=== PATIENT | male | born 1995 | race Hispanic/Latino ===

== ENCOUNTER 2019-06-28 13:11 | Emergency (ER) | payer SELFPAY ==
[2019-06-28] MEDS ORDERED: PANTOPRAZOLE 40MG TABLET PO ONE (13:38)
[2019-06-28 13:39] LABS: Absolute Lymphocytes (CBC) 1.8 K/uL (0.7-4.9); Basophils % 0.6 % (0-1.3); Hematocrit 45.5 % (39.6-49.0); Lymphocytes % 20.1 % (15.3-44.8); MPV 9.7 fL (7.6-11.3)
[2019-06-28] MEDS ORDERED: ONDANSETRON 4 MG/2 ML VIAL ONE (13:46)
[2019-06-28] MEDS ORDERED: SUCRALFATE 1 GM TABLET ONE (13:46)
[2019-06-28 13:54] LABS: ALT/SGPT 22 U/L (12-78); AST/SGOT 16 U/L (15-37); Albumin 4.2 g/dL (3.4-5.0); Alkaline Phosphatase 87 U/L (45-117); BUN Blood Urea Nitrogen 13 mg/dL (7-18); Bicarbonate 26 mmol/L (21-32); Bilirubin Direct 0.2 mg/dL (0-0.2); Bilirubin Total 0.8 mg/dL (0.2-1.0); Glucose Level 112 mg/dL (74-106); Lipase 62 U/L (73-393); Potassium 3.5 mmol/L (3.5-5.1); Protein, Total 7.5 g/dL (6.4-8.2); Sodium Level 140 mmol/L (136-145)
--- NOTE | 2019-06-28 14:15 | ER ---
Nurse's Notes [facility] Name: Alvaro Conley Age: 24 yrs Sex: Male : 1995 Arrival Date: 06/28/2019 Time: 13:13 Bed 18 Private MD: Diagnosis: Gastritis, unspecified;Gastro-esophageal reflux disease Presentation: 06/28 13:15 Presenting complaint: Patient states: Abd pain for about a week on and off, last few la1 days has been real bad when I wake up. Transition of care: patient was not received from another setting of care. Onset of symptoms was June 28, 2019. Risk Assessment: Do you want to hurt yourself or someone else? Patient reports no desire to harm self or others. Initial Sepsis Screen: Does the patient meet any 2 criteria? No. Patient's initial sepsis screen is negative. Does the patient have a suspected source of infection? No. Patient's initial sepsis screen is negative. Care prior to arrival: None. 13:15 Method Of Arrival: Ambulatory la1 13:15 Acuity: GASPER 3 la1 Historical: - Allergies: 13:16 No Known Allergies; la1 - PMHx: 13:16 gastric ulcers; la1 - Immunization history:: Adult Immunizations up to date. - Social history:: Smoking status: Patient/guardian denies using tobacco. - Ebola Screening: : No symptoms or risks identified at this time. Screenin:40 Abuse screen: Denies threats or abuse. Nutritional screening: No deficits noted. em Tuberculosis screening: No symptoms or risk factors identified. Fall Risk None identified. Assessment: 13:40 General: Appears in no apparent distress. uncomfortable, Behavior is calm, cooperative, iw Denies fever. Pain: Complains of pain in left lower quadrant and right lower quadrant and epigastric area Pain does not radiate. Pain currently is 7 out of 10 on a pain scale. Neuro: Level of Consciousness is awake, alert, obeys commands, Oriented to person, place, time, situation, Appropriate for age. Cardiovascular: Capillary refill < 3 seconds Patient's skin is warm and dry. Respiratory: Airway is patent Respiratory effort is even, unlabored, Respiratory pattern is regular, symmetrical. GI: Abdomen is flat, Bowel sounds present X 4 quads. Abd is soft and non tender X 4 quads. Reports diarrhea, nausea, vomiting. Derm: Skin is intact, is healthy with good turgor, Skin is pink, warm \T\ dry. Musculoskeletal: Capillary refill < 3 seconds, Range of motion: intact in all extremities. 14:40 Reassessment: Patient appears in no apparent distress at this time. request to speak iw with provider, provider notified. Vital Signs: 13:16 BP 137 / 89; Pulse 82; Resp 16; Temp 97.8; Pulse Ox 100% on R/A; Weight 86.18 kg; la1 Height 6 ft. 1 in. (185.42 cm); 14:40 BP 134 / 85; Pulse 75; Resp 18; Pulse Ox 99% on R/A; Pain 7/10; iw 13:16 Body Mass Index 25.07 (86.18 kg, 185.42 cm) la1 ED Course: 13:13 Patient arrived in ED. mr 13:15 Arm band placed on left wrist. la1 13:16 Triage completed. la1 13:19 [facility]C [facility] snw 13:19 Juan Luis Johnson MD is Attending Physician. snw 13:30 Initial lab(s) drawn, by me, sent to lab. Inserted saline lock: 20 gauge in left wrist, em using aseptic technique. Blood collected. 13:34 Chest Single View XRAY In Process Unspecified. EDMS 13:35 Wali Huizar LVN is Primary Nurse. em 13:40 Patient has correct armband on for positive identification. Bed in low position. Call em light in reach. Pulse ox on. NIBP on. 15:06 No provider procedures requiring assistance completed. IV discontinued, intact, iw bleeding controlled, No redness/swelling at site. Pressure dressing applied. Administered Medications: 13:43 Drug: ProTONIX 40 mg Route: PO; em 14:29 Follow up: Response: No adverse reaction em 13:56 Drug: Zofran 4 mg Route: IVP; Site: left antecubital; iw 14:30 Follow up: Response: No adverse reaction em 13:56 Drug: CarafATE 1 grams Route: PO; em 14:30 Follow up: Response: No adverse reaction em Outcome: 14:15 Discharge ordered by . snw 15:06 Discharged to home ambulatory. iw 15:06 Condition: good 15:06 Discharge instructions given to patient, Instructed on discharge instructions, follow up and referral plans. medication usage, Demonstrated understanding of instructions, follow-up care, medications, Prescriptions given X 3. 15:07 Patient left the ED. em Signatures: Dispatcher [employer] EDSabine Fuller, DBA-C DBA-Csnw EzRosemary mr Huizar, Wali, NUTRITION MANAGER NUTRITION MANAGER em Brunilda Scott, RN Maikel Graves RN RN la1
--- NOTE | 2019-06-28 14:15 | EDPHYS ---
Physician Documentation [facility] Name: lAvaro Conley Age: 24 yrs Sex: Male : 1995 Arrival Date: 06/28/2019 Time: 13:13 Bed 18 Private MD: ED Physician Juan Luis Johnson HPI: 06/28 13:43 This 24 yrs old Male presents to ER via Ambulatory with complaints of snw Abdominal Pain. 13:43 The patient presents with abdominal pain in the epigastric area, in the lower abdomen. snw Onset: The symptoms/episode began/occurred 1 week(s) ago, and became persistent. The symptoms do not radiate. The symptoms are described as burning. Severity of pain: At its worst the pain was moderate. The patient has experienced similar episodes in the past, several times. The patient has not recently seen a physician. Historical: - Allergies: 13:16 No Known Allergies; la1 - PMHx: 13:16 gastric ulcers; la1 - Immunization history:: Adult Immunizations up to date. - Social history:: Smoking status: Patient/guardian denies using tobacco. - Ebola Screening: : No symptoms or risks identified at this time. ROS: 13:43 Constitutional: Negative for fever, chills, and weight loss, Eyes: Negative for injury, snw pain, redness, and discharge, ENT: Negative for injury, pain, and discharge, Neck: Negative for injury, pain, and swelling, Cardiovascular: Negative for chest pain, palpitations, and edema, Respiratory: Negative for shortness of breath, cough, wheezing, and pleuritic chest pain, Back: Negative for injury and pain, : Negative for injury, bleeding, discharge, and swelling, MS/Extremity: Negative for injury and deformity, Skin: Negative for injury, rash, and discoloration, Neuro: Negative for headache, weakness, numbness, tingling, and seizure. 13:43 Abdomen/GI: Positive for abdominal pain, vomiting. Exam: 13:42 Constitutional: This is a well developed, well nourished patient who is awake, alert, snw and in no acute distress. Head/Face: Normocephalic, atraumatic. Eyes: Pupils equal round and reactive to light, extra-ocular motions intact. Lids and lashes normal. Conjunctiva and sclera are non-icteric and not injected. Cornea within normal limits. Periorbital areas with no swelling, redness, or edema. ENT: Nares patent. No nasal discharge, no septal abnormalities noted. Tympanic membranes are normal and external auditory canals are clear. Oropharynx with no redness, swelling, or masses, exudates, or evidence of obstruction, uvula midline. Mucous membranes moist. Neck: Trachea midline, no thyromegaly or masses palpated, and no cervical lymphadenopathy. Supple, full range of motion without nuchal rigidity, or vertebral point tenderness. No Meningismus. Chest/axilla: Normal chest wall appearance and motion. Nontender with no deformity. No lesions are appreciated. Cardiovascular: Regular rate and rhythm with a normal S1 and S2. No gallops, murmurs, or rubs. Normal PMI, no JVD. No pulse deficits. Respiratory: Lungs have equal breath sounds bilaterally, clear to auscultation and percussion. No rales, rhonchi or wheezes noted. No increased work of breathing, no retractions or nasal flaring. Back: No spinal tenderness. No costovertebral tenderness. Full range of motion. Skin: Warm, dry with normal turgor. Normal color with no rashes, no lesions, and no evidence of cellulitis. MS/ Extremity: Pulses equal, no cyanosis. Neurovascular intact. Full, normal range of motion. Neuro: Awake and alert, GCS 15, oriented to person, place, time, and situation. Cranial nerves II-XII grossly intact. Motor strength 5/5 in all extremities. Sensory grossly intact. Cerebellar exam normal. Normal gait. Psych: Awake, alert, with orientation to person, place and time. Behavior, mood, and affect are within normal limits. 13:42 Abdomen/GI: Inspection: abdomen appears normal, Bowel sounds: normal, Palpation: mild abdominal tenderness, in the epigastric area, right lower quadrant and left lower quadrant. Vital Signs: 13:16 BP 137 / 89; Pulse 82; Resp 16; Temp 97.8; Pulse Ox 100% on R/A; Weight 86.18 kg; la1 Height 6 ft. 1 in. (185.42 cm); 14:40 BP 134 / 85; Pulse 75; Resp 18; Pulse Ox 99% on R/A; Pain 7/10; iw 13:16 Body Mass Index 25.07 (86.18 kg, 185.42 cm) la1 MDM: 13:35 Patient medically screened. snw 14:16 Data reviewed: vital signs, nurses notes. Data interpreted: Pulse oximetry: on room air snw is 100 %. Interpretation: normal. Counseling: I had a detailed discussion with the patient and/or guardian regarding: the historical points, exam findings, and any diagnostic results supporting the discharge/admit diagnosis, the presence of at least one elevated blood pressure reading (>120/80) during this emergency department visit, lab results, radiology results, the need for outpatient follow up, to return to the emergency department if symptoms worsen or persist or if there are any questions or concerns that arise at home. Special discussion: Based on the patient's Hx, exam, and Dx evaluation, there is no indication for emergent surgery or inpatient Tx. It is understood by the patient/guardian that if the Sx's persist or worsen they need to return immediately for re-evaluation. I have referred the patient to see his PCP for further evaluation of high blood pressure. Based on the history and exam findings, there is no indication for further emergent testing or inpatient evaluation. I discussed with the patient/guardian the need to see the alteration tailor apprentice for further evaluation of the symptoms. I discussed with the patient/guardian the need to see the primary care provider for further evaluation of the symptoms. 06/28 13:20 Order name: Basic Metabolic Panel; Complete Time: 13:56 kb 06/28 13:20 Order name: CBC with Diff; Complete Time: 13:44 kb 06/28 13:20 Order name: Hepatic Function; Complete Time: 13:56 kb 06/28 13:20 Order name: Lipase; Complete Time: 13:56 kb 06/28 13:23 Order name: Chest Single View XRAY; Complete Time: 14:45 snw 06/28 13:20 Order name: IV Saline Lock; Complete Time: 13:35 kb 06/28 13:20 Order name: Labs collected and sent; Complete Time: 13:35 kb Administered Medications: 13:43 Drug: ProTONIX 40 mg Route: PO; em 14:29 Follow up: Response: No adverse reaction em 13:56 Drug: Zofran 4 mg Route: IVP; Site: left antecubital; iw 14:30 Follow up: Response: No adverse reaction em 13:56 Drug: CarafATE 1 grams Route: PO; em 14:30 Follow up: Response: No adverse reaction em Disposition: 16:40 Co-signature as Attending Physician, Juan Luis Johnson MD I agree with the assessment and kdr plan of care. Disposition: 06/28/19 14:15 Discharged to Home. Impression: Gastritis, unspecified, Gastro-esophageal reflux disease. - Condition is Stable. - Discharge Instructions: Gastritis, Adult, Rehydration, Adult, Food Choices for Peptic Ulcer Disease. - Prescriptions for Carafate 1 gram Oral Tablet - take 1 tablet by ORAL route 4 times per day take on an empty stomach, beginning on waking and last dose at bedtime; 100 tablet. Protonix 40 mg Oral Tablet - take 1 tablet by ORAL route once daily; 30 tablet. promethazine 25 mg Oral Tablet - take 1 tablet by ORAL route every 6 hours As needed; 20 tablet. - Work release form, Medication Reconciliation Form, Thank You Letter, Antibiotic Education, Prescription Opioid Use form. - Follow up: Private Physician; Reason: Recheck today's complaints, Continuance of care, Re-evaluation by your physician. Signatures: Dispatcher [employer] EDOR Kati Qureshi, INDUSTRIAL HYGIENE ENGINEER-C INDUSTRIAL HYGIENE ENGINEER-Juan Luis Hayward MD MD [facility] [address] Sabine Espino INDUSTRIAL HYGIENE ENGINEER-C INDUSTRIAL HYGIENE ENGINEER-Wali Browne, DIGITAL COMMUNICATIONS MANAGER DIGITAL COMMUNICATIONS MANAGER em Brunilda Scott, MITA RN Maikel Nolasco RN RN la1 Corrections: (The following items were deleted from the chart) 15:07 14:15 06/28/2019 14:15 Discharged to Home. Impression: Gastritis, unspecified; em Gastro-esophageal reflux disease. Condition is Stable. Forms are Medication Reconciliation Form, Thank You Letter, Antibiotic Education, Prescription Opioid Use. Follow up: Private Physician; Reason: Recheck today's complaints, Continuance of care, Re-evaluation by your physician. snw
--- NOTE | 2019-06-28 14:19 | RAD REPORT ---
EXAM DESCRIPTION: RAD - Chest Single View - 06/28/2019 1:34 pm CLINICAL HISTORY: Abdominal pain COMPARISON: December 2014 TECHNIQUE: AP portable chest image was obtained 1329 hours . FINDINGS: Lungs are clear. Heart and vasculature are normal. No measurable pleural effusion and no p neumothorax. No acute bony abnormality seen. No acute aortic finding. No free air under the diaphragm . IMPRESSION: No acute cardiopulmonary process. No free air under the diaphragm.
[2019-06-28 15:12] VITALS: TEMP 97.8
[2019-06-28 15:21] VITALS: BP 134/85; O2SAT 99
== END 2019-06-28 15:07 | disposition home or self-care (01) ==
LOC: ER 13:11
DX: K29.70 Gastritis, unspecified, without bleeding (principal); K21.9 Gastro-esophageal reflux disease without esophagitis
CPT/HCPCS: 36415; 71045; 80048; 80076; 83690; 85025; 96374; 99284; J2405

== ENCOUNTER 2019-07-02 08:54 | Emergency (ER) | payer SELFPAY ==
[2019-07-02] MEDS ORDERED: FAMOTIDINE 20 MG/2 ML VIAL IV ONE (09:25)
[2019-07-02] MEDS ORDERED: HALOPERIDOL LACT 5 MG/ML INJ ONE ×2 (09:25→10:03)
[2019-07-02 09:49] LABS: Absolute Lymphocytes (CBC) 1.9 K/uL (0.7-4.9); Basophils % 0.3 % (0-1.3); Hematocrit 48.6 % (39.6-49.0); Lymphocytes % 16.4 % (15.3-44.8); MPV 10.5 fL (7.6-11.3); RBC Red Blood Cell Count 5.11 M/uL (4.33-5.43)
--- NOTE | 2019-07-02 10:04 | RAD REPORT ---
EXAM DESCRIPTION: CT - Stone Protocol - 07/02/2019 9:46 am CLINICAL HISTORY: Abdominal pain, back pain COMPARISON: December 2014 TECHNIQUE: Axial 5 mm thick images were obtained without oral or IV contrast. The [id number] span s the entirety of the system including uppermost abdomen and lung bases. All CT scans are performed using dose optimization technique as appropriate and may include automated exposure control or mA/KV adjustment according to patient size. FINDINGS: No hydronephrosis is present and no obstructing ureteral calculi. No nonobstructing calcul i seen. No suspicious renal masses. Isodense masses and pyelonephritis are not excluded on a stone pr otocol CT scan. No urinary bladder suspicious finding. No significant adrenal finding. Imaged portions of the liver, spleen and pancreas show no suspicious findings on non-contrast imaging . No gallbladder or biliary tree abnormality identified. No suspicious bowel findings. No appendicitis. No hernia, mass or bulky lymphadenopathy noted. No free air, free fluid or inflammatory stranding. No significant bony abnormality. Vertebral body height and alignment are normal. No disc space narrow ing. IMPRESSION: Noncontrast CT abdomen and pelvis showing no significant or suspicious finding. Isodense masses and pyelonephritis are not excluded on stone protocol technique.
[2019-07-02 10:07] LABS: Albumin 4.5 g/dL (3.4-5.0); Bilirubin Direct 0.1 mg/dL (0-0.2); Bilirubin Total 0.4 mg/dL (0.2-1.0); Potassium 4.7 mmol/L (3.5-5.1)
--- NOTE | 2019-07-02 10:18 | EKG ---
Test Date: 2019-07-02 Test Time: 09:26:16 Senior Asic Design Engineer: BRENDAN MEASUREMENT RESULTS: Intervals: Rate: 63 WA: 124 QRSD: 94 QT: 382 QTc: 390 [place]: P: 68 WA: 124 QRS: 54 T: 65 INTERPRETIVE STATEMENTS: Normal sinus rhythm with sinus arrhythmia Normal ECG No previous ECG available for comparison Electronically Signed On 07-02-19 10:17:35 CDT by Tod Duncan
[2019-07-02] MEDS ORDERED: HYDROMORPHONE HCL 1 MG/ML INJ ONE (10:36)
[2019-07-02] MEDS ORDERED: ONDANSETRON 4 MG/2 ML VIAL ONE (10:36)
[2019-07-02] MEDS ORDERED: NA CHLORIDE 0.9% 50 ML IV ONE (10:36)
[2019-07-02 11:06] LABS: Barbiturates NEGATIVE (NEGATIVE); Benzodiazepines NEGATIVE (NEGATIVE); Cocaine NEGATIVE (NEGATIVE); METHAMPHETAM NEGATIVE (NEGATIVE); Methadone NEGATIVE (NEGATIVE); Opiates NEGATIVE (NEGATIVE); Phencyclidine NEGATIVE (NEGATIVE); THC Cannibis POSITIVE (NEGATIVE)
[2019-07-02 11:07] LABS: Urine Bacteria <20 /HPF (NONE SEEN); Urine Culture Reflex Order NOT NEEDED; Urine Mucus 1+ /HPF (NONE SEEN); Urine RBC <5 /HPF (NONE SEEN)
--- NOTE | 2019-07-02 11:19 | ER ---
Nurse's Notes [facility] Name: Alvaro Conley Age: 24 yrs Sex: Male : 1995 Arrival Date: 07/02/2019 Time: 08:56 Bed 14 Private MD: Diagnosis: Generalized abdominal pain;Chronic pain syndrome Presentation: 07/02 09:06 Presenting complaint: Patient states: Abdominal and low back pain that began this morning, also reports N/V, denies diarrhea or fever. Transition of care: patient was not received from another setting of care. Onset of symptoms was July 02, 2019. Risk Assessment: Do you want to hurt yourself or someone else? Patient reports no desire to harm self or others. Initial Sepsis Screen: Does the patient meet any 2 criteria? No. Patient's initial sepsis screen is negative. Does the patient have a suspected source of infection? No. Patient's initial sepsis screen is negative. Care prior to arrival: None. 09:06 Method Of Arrival: Ambulatory 09:06 Acuity: GASPER 3 Triage Assessment: 09:10 General: Appears in no apparent distress. uncomfortable, slender, Behavior is ph cooperative, appropriate for age, Denies fever, chills. Pain: Complains of pain in right upper quadrant, left upper quadrant and right lower quadrant Pain radiates to low back area Pain currently is 10 out of 10 on a pain scale. Neuro: Level of Consciousness is awake, alert, obeys commands, Oriented to person, place, time, situation. Cardiovascular: Capillary refill < 3 seconds in bilateral fingers Patient's skin is warm and dry. Respiratory: Airway is patent Respiratory effort is even, unlabored, Respiratory pattern is regular, symmetrical. GI: Abdomen is flat, non-distended, Reports lower abdominal pain, upper abdominal pain, nausea, vomiting, Patient currently denies diarrhea. : Reports pain in bilateral lower quadrant(s) in lower back. Derm: Skin is intact, is healthy with good turgor, Skin is pink, warm \T\ dry. Musculoskeletal: Circulation, motion, and sensation intact. Range of motion: intact in all extremities. Historical: - Allergies: 09:10 No Known Allergies; ph - Home Meds: 09:10 Promethazine Oral [Active]; ph - PMHx: 09:10 gastric ulcers; ph - PSHx: 09:10 None; ph - Immunization history:: Adult Immunizations unknown. - Social history:: Smoking status: Patient uses tobacco products, smokes one-half pack cigarettes per day. - Ebola Screening: : No symptoms or risks identified at this time. Screenin:12 Abuse screen: Denies threats or abuse. Denies injuries from another. Nutritional ph screening: No deficits noted. Tuberculosis screening: No symptoms or risk factors identified. Fall Risk None identified. Assessment: 09:47 General: see triage assessment. ph 10:09 Reassessment: Patient appears in no apparent distress at this time. Patient and/or ph family updated on plan of care and expected duration. Pain level reassessed. Patient is alert, oriented x 3, equal unlabored respirations, skin warm/dry/pink. Pt diaphoretic and restless, continues to c/o pain 10/10 and nausea, ERP notified, see MAR. 11:17 Reassessment: Patient appears in no apparent distress at this time. Patient and/or ph family updated on plan of care and expected duration. Pain level reassessed. Patient is alert, oriented x 3, equal unlabored respirations, skin warm/dry/pink. Pt now resting quietly, VSS. Vital Signs: 09:09 BP 147 / 94; Pulse 70; Resp 20; Temp 97.9(O); Pulse Ox 100% on R/A; Weight 95.25 kg; ph Height 6 ft. 1 in. (185.42 cm); Pain 10/10; 10:10 BP 124 / 112; Pulse 59; Resp 18; Pulse Ox 100% on R/A; Pain 10/10; ph 11:17 BP 118 / 89; Pulse 62; Resp 18; Pulse Ox 97% on R/A; ph 09:09 Body Mass Index 27.70 (95.25 kg, 185.42 cm) ph ED Course: 08:56 Patient arrived in ED. mr 09:04 Raphael Bettencourt MD is Attending Physician. gs 09:06 Sahara Nobles, MITA is Primary Nurse. ph 09:09 Triage completed. ph 09:12 Arm band placed on Patient placed in an exam room, on a stretcher. ph 09:12 Patient has correct armband on for positive identification. Placed in gown. Bed in low ph position. Call light in reach. Pulse ox on. NIBP on. Door closed. Noise minimized. Warm blanket given. 09:43 EKG done, by composite bond technician. reviewed by Raphael Bettencourt MD. at1 09:45 CT Stone Protocol In Process Unspecified. EDMS 09:46 Inserted saline lock: 22 gauge in left antecubital area, using aseptic technique. Blood ph collected. 11:17 Don Stearns MD is Referral Physician. gs 11:27 No provider procedures requiring assistance completed. IV discontinued, intact, ph bleeding controlled, No redness/swelling at site. Pressure dressing applied. Administered Medications: 09:40 Drug: HALdol 2.5 mg Route: IVP; Site: left antecubital; ph 10:10 Follow up: Response: No adverse reaction; Pain is unchanged, physician notified ph 09:40 Drug: Pepcid 20 mg Route: IVP; Site: left antecubital; ph 10:10 Follow up: Response: No adverse reaction ph 10:08 Drug: HALdol 2.5 mg Route: IVP; Site: left antecubital; ph 10:45 Follow up: Response: No adverse reaction; Pain is unchanged, physician notified ph 10:44 Drug: Dilaudid 1 mg {Note: mixed w/ 50 cc NS.} Route: IVP; Site: left antecubital; ph 11:19 Follow up: Response: No adverse reaction; Pain is decreased ph 10:45 Drug: Zofran 4 mg Route: IVP; Site: left antecubital; ph 11:27 Follow up: Response: No adverse reaction; Vomiting decreased ph Outcome: 11:18 Discharge ordered by . gs 11:27 Discharged to home ambulatory. ph 11:27 Condition: good 11:27 Discharge instructions given to patient, Instructed on discharge instructions, follow up and referral plans. Demonstrated understanding of instructions, follow-up care. 11:28 Patient left the ED. ph Signatures: Dispatcher [employer] EDLA Ez Opal Martinez, easter bunny EKG Tat1 Sahara Nobles, RN RN ph Rut, MD CARLOZ Lim Corrections: (The following items were deleted from the chart) 09:09 09:09 BP 147 / 94; Pulse 20bpm; Resp 20bpm; Pulse Ox 100% RA; Temp 97.9F Oral; 95.25 ph kg; Height 6 ft. 1 in.; BMI: 27.7; Pain 10/10; ph
--- NOTE | 2019-07-02 11:20 | EDPHYS ---
Physician Documentation [facility] Name: Alvaro Conley Age: 24 yrs Sex: Male : 1995 Arrival Date: 07/02/2019 Time: 08:56 Bed 14 Private MD: ED Physician Raphael Bettencourt HPI: 07/02 11:01 This 24 yrs old Male presents to ER via Ambulatory with complaints of gs Abdominal Pain. 11:01 The patient presents with abdominal pain that is diffuse. Onset: The symptoms/episode gs began/occurred 2 day(s) ago. Associated signs and symptoms: Pertinent positives: vomiting, Pertinent negatives: vomiting blood. The symptoms are described as burning, constant. Modifying factors: The symptoms are alleviated by nothing, the symptoms are aggravated by nothing. Severity of pain: At its worst the pain was severe in the emergency department the pain is unchanged. The patient has experienced similar episodes in the past, chronically. Historical: - Allergies: 09:10 No Known Allergies; ph - Home Meds: 09:10 Promethazine Oral [Active]; ph - PMHx: 09:10 gastric ulcers; ph - PSHx: 09:10 None; ph - Immunization history:: Adult Immunizations unknown. - Social history:: Smoking status: Patient uses tobacco products, smokes one-half pack cigarettes per day. - Ebola Screening: : No symptoms or risks identified at this time. ROS: 11:01 All other systems are negative. gs Exam: 11:01 Head/Face: Normocephalic, atraumatic. Eyes: Pupils equal round and reactive to light, gs extra-ocular motions intact. Lids and lashes normal. Conjunctiva and sclera are non-icteric and not injected. Cornea within normal limits. Periorbital areas with no swelling, redness, or edema. ENT: Nares patent. No nasal discharge, no septal abnormalities noted. Tympanic membranes are normal and external auditory canals are clear. Oropharynx with no redness, swelling, or masses, exudates, or evidence of obstruction, uvula midline. Mucous membranes moist. Neck: Trachea midline, no thyromegaly or masses palpated, and no cervical lymphadenopathy. Supple, full range of motion without nuchal rigidity, or vertebral point tenderness. No Meningismus. Chest/axilla: Normal chest wall appearance and motion. Nontender with no deformity. No lesions are appreciated. Cardiovascular: Regular rate and rhythm with a normal S1 and S2. No gallops, murmurs, or rubs. Normal PMI, no JVD. No pulse deficits. Respiratory: Lungs have equal breath sounds bilaterally, clear to auscultation and percussion. No rales, rhonchi or wheezes noted. No increased work of breathing, no retractions or nasal flaring. Back: No spinal tenderness. No costovertebral tenderness. Full range of motion. Skin: Warm, dry with normal turgor. Normal color with no rashes, no lesions, and no evidence of cellulitis. MS/ Extremity: Pulses equal, no cyanosis. Neurovascular intact. Full, normal range of motion. Neuro: Awake and alert, GCS 15, oriented to person, place, time, and situation. Cranial nerves II-XII grossly intact. Motor strength 5/5 in all extremities. Sensory grossly intact. Cerebellar exam normal. Normal gait. 11:01 Constitutional: The patient appears alert, awake, uncomfortable. 11:01 Abdomen/GI: Palpation: mild abdominal tenderness, in all quadrants, rebound tenderness, is not appreciated. Vital Signs: 09:09 BP 147 / 94; Pulse 70; Resp 20; Temp 97.9(O); Pulse Ox 100% on R/A; Weight 95.25 kg; ph Height 6 ft. 1 in. (185.42 cm); Pain 10/10; 10:10 BP 124 / 112; Pulse 59; Resp 18; Pulse Ox 100% on R/A; Pain 10/10; ph 11:17 BP 118 / 89; Pulse 62; Resp 18; Pulse Ox 97% on R/A; ph 09:09 Body Mass Index 27.70 (95.25 kg, 185.42 cm) ph MDM: 09:20 Patient medically screened. gs 11:01 Differential diagnosis: bowel obstruction, coronary artery disease, non-specific abd gs pain, pancreatitis. Data reviewed: vital signs, nurses notes, old medical records, lab test result(s), EKG, radiologic studies. Response to treatment: the patient's symptoms have markedly improved after treatment, and as a result, I will discharge patient. 07/02 09: Order name: Basic Metabolic Panel; Complete Time: 10:12 07/02 09: Order name: CBC with Diff; Complete Time: 10:02 07/02 09:22 Order name: Hepatic Function; Complete Time: 10:12 07/02 09:22 Order name: Lipase; Complete Time: 10:12 07/02 09:22 Order name: Urine Microscopic Only 07/02 09:22 Order name: Urine Drug Screen 07/02 09:22 Order name: CT Stone Protocol; Complete Time: 10:12 07/02 09:22 Order name: EKG; Complete Time: 09:22 07/02 10:35 Order name: Urine Dipstick--Ancillary (enter results) 07/02 09:22 Order name: IV Saline Lock; Complete Time: 09:46 07/02 09:22 Order name: Labs collected and sent; Complete Time: 09:46 07/02 09:22 Order name: Urine Dipstick-Ancillary (obtain specimen); Complete Time: 10:58 07/02 09:22 Order name: EKG - Nurse/Tech; Complete Time: 09:45 gs Administered Medications: 09:40 Drug: HALdol 2.5 mg Route: IVP; Site: left antecubital; ph 10:10 Follow up: Response: No adverse reaction; Pain is unchanged, physician notified ph 09:40 Drug: Pepcid 20 mg Route: IVP; Site: left antecubital; ph 10:10 Follow up: Response: No adverse reaction ph 10:08 Drug: HALdol 2.5 mg Route: IVP; Site: left antecubital; ph 10:45 Follow up: Response: No adverse reaction; Pain is unchanged, physician notified ph 10:44 Drug: Dilaudid 1 mg {Note: mixed w/ 50 cc NS.} Route: IVP; Site: left antecubital; ph 11:19 Follow up: Response: No adverse reaction; Pain is decreased ph 10:45 Drug: Zofran 4 mg Route: IVP; Site: left antecubital; ph 11:27 Follow up: Response: No adverse reaction; Vomiting decreased ph Disposition: 07/02/19 11:18 Discharged to Home. Impression: Generalized abdominal pain, Chronic pain syndrome. - Condition is Stable. - Discharge Instructions: Abdominal Pain, Adult. - Medication Reconciliation Form, Thank You Letter, Antibiotic Education, Prescription Opioid Use, Work release form form. - Follow up: Don Stearns MD; When: 2 - 3 days; Reason: Re-evaluation by your physician. Signatures: Dispatcher [employer] Sahara Sierra RN RN BettencourtRaphael MD MD gs Corrections: (The following items were deleted from the chart) 11:28 11:18 07/02/2019 11:18 Discharged to Home. Impression: Generalized abdominal pain; ph Chronic pain syndrome. Condition is Stable. Forms are Medication Reconciliation Form, Thank You Letter, Antibiotic Education, Prescription Opioid Use. Follow up: Don Stearns; When: 2 - 3 days; Reason: Re-evaluation by your physician. gs
[2019-07-02 11:46] VITALS: TEMP 97.9
[2019-07-02 11:47] VITALS: BP 118/89; O2SAT 97
[2019-07-02 13:15] LABS: Urine Blood TRACE (NEG); Urine Glucose NEGATIVE (NEG); Urine Protein NEGATIVE (NEG); Urine Specific Gravity 1.025 (1.005-1.030); Urine pH 6.5 (5.0-7.0)
== END 2019-07-02 11:28 | disposition home or self-care (01) ==
LOC: ER 08:54
DX: G89.4 Chronic pain syndrome (principal); F17.210 Nicotine dependence, cigarettes, uncomplicated
CPT/HCPCS: 36415; 74176; 76377; 80048; 80076; 80307; 81003; 81015; 83690; 85025; 93005; 96374; 96375; 99284; J1170; J1630; J2405

== ENCOUNTER 2021-04-18 12:11 | Emergency (ER) | payer SELFPAY ==
[2021-04-18 13:09] LABS: Absolute Lymphocytes (CBC) 2.7 K/uL (0.7-4.9); Basophils % 0.8 % (0-1.3); Hematocrit 43.5 % (39.6-49.0); Lymphocytes % 33.3 % (15.3-44.8); MPV 9.4 fL (7.6-11.3); RBC Red Blood Cell Count 4.61 M/uL (4.33-5.43)
[2021-04-18] MEDS ORDERED: MORPHINE 4 MG/ML SYR ONE ×2 (14:29→15:43)
[2021-04-18] MEDS ORDERED: ONDANSETRON 4 MG/2 ML VIAL ONE (14:29)
[2021-04-18 14:54] LABS: ALT/SGPT 28 U/L (12-78); Albumin 4.7 g/dL (3.4-5.0); Alkaline Phosphatase 83 U/L (45-117); BUN Blood Urea Nitrogen 11 mg/dL (7-18); Bicarbonate 25 mmol/L (21-32); Bilirubin Direct < 0.1 mg/dL (0-0.2); Bilirubin Total 0.7 mg/dL (0.2-1.0); Glucose Level 123 mg/dL (74-106); Lipase 31 U/L (73-393); Protein, Total 8.4 g/dL (6.4-8.2); Sodium Level 142 mmol/L (136-145)
[2021-04-18 14:55] LABS: AST/SGOT 26 U/L (15-37); Potassium 4.7 mmol/L (3.5-5.1)
[2021-04-18] MEDS ORDERED: PANTOPRAZOLE 40 MG INJ ONE (15:43)
[2021-04-18] MEDS ORDERED: PROMETHAZINE INJ 25 MG/ML AMP ONE (15:44)
--- NOTE | 2021-04-18 15:54 | RAD REPORT ---
EXAM DESCRIPTION: CT - Abdomen Pelvis W Contrast - 04/18/2021 3:36 pm CLINICAL HISTORY: Abdominal pain COMPARISON: 2019 TECHNIQUE: Computed axial tomography of the abdomen pelvis was obtained. 100 cc Isovue-300 was admin istered intravenously. Oral contrast was not requested which limits evaluation of bowel. All CT scans are performed using dose optimization technique as appropriate and may include automated exposure control or mA/KV adjustment according to patient size. FINDINGS: The liver, spleen, pancreas, adrenal and kidneys appear unremarkable. There is no evidence of diverticulitis. Normal appendix Tiny umbilical hernia IMPRESSION: No acute abnormality is displayed.
[2021-04-18] MEDS ORDERED: LIDOCAINE VISCOUS 2% SOLN 15 ML UDC ONE (16:39)
[2021-04-18] MEDS ORDERED: MAGNES/ALUMIN/SIMET 30ML UCUP ONE (16:39)
--- NOTE | 2021-04-18 16:44 | RAD REPORT ---
EXAM DESCRIPTION: US - Abdomen Exam Limited - 04/18/2021 4:11 pm CLINICAL HISTORY: Abdominal pain. COMPARISON: 2012 FINDINGS: The gallbladder wall is not thickened. A gallstone is not seen. The biliary tree is normal caliber. IMPRESSION: Unremarkable gallbladder ultrasound.
--- NOTE | 2021-04-18 16:52 | EDPHYS ---
Physician Documentation [facility] Name: Alvaro Conley Age: 26 yrs Sex: Male : 1995 Arrival Date: 04/18/2021 Time: 12:24 Bed 17 Private MD: ED Physician David Caruso HPI: 04/18 16:39 This 26 yrs old Male presents to ER via Ambulatory with complaints of jr8 Abdominal Pain, Vomiting. 16:39 The patient presents with abdominal pain in the epigastric area. Onset: The jr8 symptoms/episode began/occurred acutely, today. The symptoms do not radiate. Associated signs and symptoms: Pertinent positives: nausea. The symptoms are described as stabbing. Modifying factors: The symptoms are alleviated by nothing, the symptoms are aggravated by nothing. Severity of pain: At its worst the pain was moderate in the emergency department the pain is unchanged. The patient has experienced a previous episode. The patient has not recently seen a physician. Stated that he has a history of gastric ulcers in the past. Started with acute onset epigastric pain has not been going away. Stated that he had what looked like vomit in his blood from earlier.. Historical: - Allergies: 12:49 No Known Allergies; iw - Home Meds: 12:49 None [Active]; iw - PMHx: 12:49 gastric ulcers; iw - Immunization history:: Client reports having NOT received the Covid vaccine. - Social history:: Smoking status: Patient reports the use of cigarette tobacco products, smokes one-half pack cigarettes per day, Patient uses. ROS: 16:39 Eyes: Negative for injury, pain, redness, and discharge, ENT: Negative for injury, jr8 pain, and discharge, Neck: Negative for injury, pain, and swelling, Cardiovascular: Negative for chest pain, palpitations, and edema, Respiratory: Negative for shortness of breath, cough, wheezing, and pleuritic chest pain, Back: Negative for injury and pain, MS/Extremity: Negative for injury and deformity, Skin: Negative for injury, rash, and discoloration, Neuro: Negative for headache, weakness, numbness, tingling, and seizure. 16:39 Abdomen/GI: Positive for abdominal pain, nausea and vomiting, Negative for diarrhea, constipation, abdominal cramps, abdominal distension. Exam: 16:39 Cardiovascular: Regular rate and rhythm with a normal S1 and S2. No gallops, murmurs, jr8 or rubs. Normal PMI, no JVD. No pulse deficits. Respiratory: Lungs have equal breath sounds bilaterally, clear to auscultation and percussion. No rales, rhonchi or wheezes noted. No increased work of breathing, no retractions or nasal flaring. Back: No spinal tenderness. No costovertebral tenderness. Full range of motion. Skin: Warm, dry with normal turgor. Normal color with no rashes, no lesions, and no evidence of cellulitis. MS/ Extremity: Pulses equal, no cyanosis. Neurovascular intact. Full, normal range of motion. Neuro: Awake and alert, GCS 15, oriented to person, place, time, and situation. Cranial nerves II-XII grossly intact. Motor strength 5/5 in all extremities. Sensory grossly intact. 16:39 Constitutional: The patient appears alert, awake, uncomfortable. 16:39 Abdomen/GI: Inspection: abdomen appears normal, Bowel sounds: active, all quadrants, Palpation: soft, in all quadrants, moderate abdominal tenderness, in the epigastric area, mass, is not appreciated, rebound tenderness, is not appreciated, voluntary guarding, is not appreciated, involuntary guarding, is not appreciated, no appreciated organomegaly, Indicators: McBurney's point is not tender, Alves's sign is negative, Rovsing's sign is negative, Liver: tenderness, is not appreciated. Vital Signs: 12:48 BP 137 / 97; Pulse 72; Resp 16; Temp 96.8; Pulse Ox 100% on R/A; Weight 90.72 kg; iw Height 6 ft. (182.88 cm); 14:23 BP 151 / 86; Pulse 70; Resp 20; Temp 96.3(O); Pulse Ox 99% on R/A; mh5 15:45 BP 136 / 91; Pulse 62; Resp 18; Pulse Ox 100% ; ld1 17:19 BP 140 / 86; Pulse 72; Resp 18; Pulse Ox 100% ; ld1 12:48 Body Mass Index 27.12 (90.72 kg, 182.88 cm) iw MDM: 14:02 Patient medically screened. jr 16:39 Data reviewed: vital signs, nurses notes, lab test result(s), radiologic studies, CT jr8 scan, ultrasound. Data interpreted: Pulse oximetry: on room air is 100 %. Interpretation: normal. Counseling: I had a detailed discussion with the patient and/or guardian regarding: the historical points, exam findings, and any diagnostic results supporting the discharge/admit diagnosis, lab results, radiology results, the need for outpatient follow up, a director loan, to return to the emergency department if symptoms worsen or persist or if there are any questions or concerns that arise at home. Response to treatment: the patient's symptoms have mildly improved after treatment. ED course: Patient's labs without acute findings. CT does not show any intra-abdominal pathology. Ultrasound likewise. Discussed with patient that we need to start him back on proton pump inhibitor if he is not and that he needs to follow-up with gastroenterology for further assessment for his epigastric pain.. 04/18 12:50 Order name: Basic Metabolic Panel; Complete Time: 15:01 04/18 12:50 Order name: CBC with Diff; Complete Time: 13:44 04/18 12:50 Order name: Hepatic Function; Complete Time: 15:01 04/18 12:50 Order name: Lipase; Complete Time: 15:01 04/18 15:17 Order name: CT Abd/Pelvis - IV Contrast Only; Complete Time: 16:08 8 04/18 15:18 Order name: US Abdomen Limited; Complete Time: 16:50 8 04/18 12:50 Order name: IV Saline Lock; Complete Time: 13:43 iw 04/18 12:50 Order name: Labs collected and sent; Complete Time: 13:43 04/18 13:16 Order name: Labs - recollect needed: recollect green top; Complete Time: 14:07 bd Administered Medications: 14:05 Drug: Zofran (Ondansetron) 4 mg Route: IVP; Site: right wrist; iw 14:30 Follow up: Response: No adverse reaction iw 14:05 Drug: morphine 4 mg Route: IVP; Site: right wrist; iw 14:30 Follow up: Response: No adverse reaction iw 14:36 Not Given (Physician Discretion): GI Cocktail without - (Maalox Suspension 30 jr8 ml, Lidocaine Liquid 2 % 15 ml) PO once 15:43 Drug: ProTONIX (pantoprazole) 40 mg Route: IVP; Site: right wrist; ld1 15:43 Follow up: Response: No adverse reaction ld1 15:43 Drug: morphine 4 mg Route: IVP; Site: right wrist; ld1 15:44 Follow up: Response: No adverse reaction ld1 15:44 Drug: Promethazine 12.5 mg Route: IVP; Site: right wrist; ld1 15:44 Follow up: Response: No adverse reaction ld1 16:21 Drug: GI Cocktail without - (Maalox Suspension 30 ml, Lidocaine Liquid 2 % 15 ld1 ml) Route: PO; 16:21 Follow up: Response: No adverse reaction ld1 Disposition: 04/19 07:03 Co-signature as Attending Physician, David Caruso MD I agree with the assessment and siri plan of care. Disposition Summary: 04/18/21 16:51 Discharge Ordered Location: Home [facility] Problem: new jr8 Symptoms: have improved jr8 Condition: Stable jr8 Diagnosis - Epigastric pain jr8 - Vomiting jr8 Followup: jr8 - With: Don Stearns MD - When: 2 - 3 days - Reason: Recheck today's complaints, Continuance of care, Re-evaluation by your physician Discharge Instructions: - Discharge Summary Sheet jr8 - Abdominal Pain, Adult jr8 Forms: - Medication Reconciliation Form jr8 - Thank You Letter jr8 - Antibiotic Education jr8 - Prescription Opioid Use jr8 Prescriptions: - Protonix 40 mg Oral Tablet - take 1 tablet by ORAL route once daily; 30 tablet; Refills: 0, Product jr8 Selection Permitted Signatures: Dispatcher [employer] Kennedi Mack Corey, MD MD cha Williams, Irene, RN RN iw Roszak, Josh, PA PA jr8 Glen Reyes NP [employer] PAINTER HELPER pm1 Nadine Rg RN RN ld1
--- NOTE | 2021-04-18 16:52 | ER ---
Nurse's Notes [facility] Name: Alvaro Conley Age: 26 yrs Sex: Male : 1995 Arrival Date: 04/18/2021 Time: 12:24 Bed 17 Private MD: Diagnosis: Epigastric pain;Vomiting Presentation: 04/18 12:48 Chief complaint: Patient states: stomach started hurting really bad this morning and iw started throwing up blood, has hx of gastric ulcers. Coronavirus screen: Client presents with at least one sign or symptom that may indicate coronavirus-19. Ebola Screen: Patient negative for fever greater than or equal to 101.5 degrees Fahrenheit, and additional compatible Ebola Virus Disease symptoms Patient denies exposure to infectious person. Patient denies travel to an Ebola-affected area in the 21 days before illness onset. No symptoms or risks identified at this time. Initial Sepsis Screen: Does the patient meet any 2 criteria? No. Patient's initial sepsis screen is negative. Does the patient have a suspected source of infection? No. Patient's initial sepsis screen is negative. Risk Assessment: Do you want to hurt yourself or someone else? Patient reports no desire to harm self or others. Onset of symptoms was April 18, 2021. 12:48 Method Of Arrival: Ambulatory iw 12:48 Acuity: GASPER 3 iw Historical: - Allergies: 12:49 No Known Allergies; iw - Home Meds: 12:49 None [Active]; iw - PMHx: 12:49 gastric ulcers; iw - Immunization history:: Client reports having NOT received the Covid vaccine. - Social history:: Smoking status: Patient reports the use of cigarette tobacco products, smokes one-half pack cigarettes per day, Patient uses. Screenin:45 Abuse screen: Denies threats or abuse. Denies injuries from another. Nutritional ld1 screening: No deficits noted. Tuberculosis screening: No symptoms or risk factors identified. Fall Risk None identified. Assessment: 15:45 General: Appears in no apparent distress. uncomfortable, Behavior is cooperative, ld1 appropriate for age, anxious. Pain: Complains of pain in epigastric area Pain does not radiate. Pain currently is 10 out of 10 on a pain scale. Quality of pain is described as burning, throbbing, Pain began 4 hours ago. Is continuous. Neuro: Level of Consciousness is awake, alert, obeys commands, Oriented to person, place, time, situation. Cardiovascular: Capillary refill < 3 seconds Rhythm is regular Parent/caregiver reports patient has had diaphoresis. Respiratory: Airway is patent Respiratory effort is even, unlabored, Respiratory pattern is regular, symmetrical. GI: Abdomen is flat, non-distended, Bowel sounds present X 4 quads. Abd is soft Abdomen is tender to palpation X 4 quads. Reports upper abdominal pain, vomiting. : No signs and/or symptoms were reported regarding the genitourinary system. EENT: No signs and/or symptoms were reported regarding the EENT system. Derm: Skin is diaphoretic. Musculoskeletal: No signs and/or symptoms reported regarding the musculoskeletal system. 17:19 Reassessment: Patient appears in no apparent distress at this time. No changes from ld1 previously documented assessment. Patient and/or family updated on plan of care and expected duration. Pain level reassessed. Vital Signs: 12:48 BP 137 / 97; Pulse 72; Resp 16; Temp 96.8; Pulse Ox 100% on R/A; Weight 90.72 kg; iw Height 6 ft. (182.88 cm); 14:23 BP 151 / 86; Pulse 70; Resp 20; Temp 96.3(O); Pulse Ox 99% on R/A; mh5 15:45 BP 136 / 91; Pulse 62; Resp 18; Pulse Ox 100% ; ld1 17:19 BP 140 / 86; Pulse 72; Resp 18; Pulse Ox 100% ; ld1 12:48 Body Mass Index 27.12 (90.72 kg, 182.88 cm) ED Course: 12:24 Patient arrived in ED. am2 12:49 Triage completed. iw 13:52 Brunilda Scott, MITA is Primary Nurse. iw 14:02 Jarrell Messina PA is PHCP. jr8 14:02 David Caruso MD is Attending Physician. jr8 14:12 Basic Metabolic Panel Sent. 5 14:12 Hepatic Function Sent. 5 14:12 Lipase Sent. 5 14:12 Initial lab(s) drawn, by nc, sent to lab. Inserted saline lock: 22 gauge in right 5 wrist, using aseptic technique. Blood collected. 14:13 Patient has correct armband on for positive identification. Placed in gown. Bed in low mh5 position. Call light in reach. Side rails up X 1. Pulse ox on. NIBP on. 15:36 CT Abd/Pelvis - IV Contrast Only In Process Unspecified. EDMS 15:45 No provider procedures requiring assistance completed. ld1 16:10 US Abdomen Limited In Process Unspecified. EDMS 16:50 Don Stearns MD is Referral Physician. jr8 17:19 IV discontinued, intact, bleeding controlled, No redness/swelling at site. ld1 17:20 Arm band placed on right wrist. ld1 Administered Medications: 14:05 Drug: Zofran (Ondansetron) 4 mg Route: IVP; Site: right wrist; iw 14:30 Follow up: Response: No adverse reaction iw 14:05 Drug: morphine 4 mg Route: IVP; Site: right wrist; iw 14:30 Follow up: Response: No adverse reaction iw 14:36 Not Given (Physician Discretion): GI Cocktail without - (Maalox Suspension 30 jr8 ml, Lidocaine Liquid 2 % 15 ml) PO once 15:43 Drug: ProTONIX (pantoprazole) 40 mg Route: IVP; Site: right wrist; ld1 15:43 Follow up: Response: No adverse reaction ld1 15:43 Drug: morphine 4 mg Route: IVP; Site: right wrist; ld1 15:44 Follow up: Response: No adverse reaction ld1 15:44 Drug: Promethazine 12.5 mg Route: IVP; Site: right wrist; ld1 15:44 Follow up: Response: No adverse reaction ld1 16:21 Drug: GI Cocktail without - (Maalox Suspension 30 ml, Lidocaine Liquid 2 % 15 ld1 ml) Route: PO; 16:21 Follow up: Response: No adverse reaction ld1 Outcome: 16:51 Discharge ordered by . jr8 17:19 Discharged to home ambulatory, with family. ld1 17:19 Condition: stable 17:19 Discharge instructions given to patient, family, Instructed on discharge instructions, follow up and referral plans. medication usage, Demonstrated understanding of instructions, follow-up care, medications, Prescriptions given X 1. 17:20 Patient left the ED. ld1 Signatures: Dispatcher [employer] EDMS Brunilda Scott RN RN iw Jarrell Messina PA PA jr8 Martinez, Maria [facility] Opal De Jesus am2 Nadine Rg, RN RN ld1
[2021-04-18 17:45] VITALS: TEMP 96.3
[2021-04-18 17:47] VITALS: O2SAT 100
[2021-04-18 17:49] VITALS: BP 140/86
--- NOTE | 2021-04-19 17:01 | EKG ---
Test Date: 2021-04-18 Test Time: 14:05:40 Turner Machine: LOLY MEASUREMENT RESULTS: Intervals: Rate: 64 GA: 132 QRSD: 90 QT: 390 QTc: 402 Novi: P: 70 GA: 132 QRS: 62 T: 68 INTERPRETIVE STATEMENTS: Sinus rhythm with marked sinus arrhythmia Otherwise normal ECG Compared to ECG 07/02/2019 09:26:16 No significant changes Electronically Signed On 04-19-21 16:58:59 CDT by Tod Duncan
== END 2021-04-18 17:20 | disposition home or self-care (01) ==
LOC: ER 12:11
DX: R11.10 Vomiting, unspecified (principal); F17.210 Nicotine dependence, cigarettes, uncomplicated
CPT/HCPCS: 36415; 74177; 76705; 80048; 80076; 83690; 85025; 93005; 96374; 96375; 99284; C9113; J2405; J2550; Q9967